=== PATIENT | female | born 1980 | race Caucasian/White ===

== ENCOUNTER 2019-09-06 01:01 | Emergency (ER) | payer SELFPAY ==
[~2019-09-06] VITALS: Ht 149 cm; Wt 57.0 kg
[2019-09-06 01:30] LABS: BASOPHILS % (AUTO) 0 % (0-10); EOSINOPHILS % (AUTO) 0 % (0-10); HEMATOCRIT 36 % (35-52); HEMOGLOBIN 12.1 G/DL (11.5-16.0); LYMPHOCYTES % (AUTO) 13 % (12-44); MEAN CORPUSCULAR HEMOGLOBIN 28 PG (25-34); MEAN CORPUSCULAR HGB CONC 33 G/DL (32-36); MEAN CORPUSCULAR VOLUME 85 FL (80-99); MEAN PLATELET VOLUME 11.8 FL (7.4-10.4); MONOCYTES # (AUTO) 0.3 X 10^3 (0.0-1.0); MONOCYTES % (AUTO) 4 % (0-12); NEUTROPHILS # (AUTO) 6.6 X 10^3 (1.8-7.8); NEUTROPHILS % (AUTO) 83 % (42-75); PLATELET COUNT 252 10^3/uL (130-400); RED CELL DISTRIBUTION WIDTH 12.9 % (10.0-14.5)
[2019-09-06 01:38] LABS: BILIRUBIN,URINE NEGATIVE (NEGATIVE); CLARITY,URINE CLEAR; COLOR,URINE YELLOW; GLUCOSE, URINE (UA) 1+ (NEGATIVE); KETONES,URINE 2+ (NEGATIVE); LEUKOCYTE ESTERASE ,URINE NEGATIVE (NEGATIVE); NITRITE,URINE NEGATIVE (NEGATIVE); PH,URINE 9 (5-9); PROTEIN,URINE 1+ (NEGATIVE); UROBILINOGEN,URINE NORMAL (NORMAL)
[2019-09-06 01:46] LABS: BACTERIA,URINE FEW /HPF; SQUAMOUS EPITHELIAL CELL,UR RARE /HPF; WBC,URINE RARE /HPF
[2019-09-06 01:48] LABS: AMPHETAMINE SCREEN, URINE NEGATIVE (NEGATIVE); BARBITURATE SCREEN URINE NEGATIVE (NEGATIVE); BENZODIAZEPINES SCREEN URINE NEGATIVE (NEGATIVE); CANNABINOID SCREEN, URINE NEGATIVE (NEGATIVE); COCAINE SCREEN URINE NEGATIVE (NEGATIVE); METHADONE STAT NEGATIVE (NEGATIVE); METHAMPHETAMINE SCREEN URINE S NEGATIVE (NEGATIVE); OPIATE SCREEN URINE NEGATIVE (NEGATIVE); OXYCODONE STAT NEGATIVE (NEGATIVE); PROPOXYPHENE STAT NEGATIVE (NEGATIVE); TRICYCLIC ANTIDEPRESSANTS SCRE NEGATIVE (NEGATIVE)
[2019-09-06 01:49] LABS: ALANINE AMINOTRANSFERASE 26 U/L (0-55); ALBUMIN 4.7 GM/DL (3.2-4.5); ALKALINE PHOSPHATASE 86 U/L (40-136); AMYLASE 73 U/L (25-125); BILIRUBIN,TOTAL 0.5 MG/DL (0.1-1.0); BUN/CREATININE RATIO 10; CALCIUM 9.3 MG/DL (8.5-10.1); CARBON DIOXIDE 17 MMOL/L (21-32); CHLORIDE 105 MMOL/L (98-107); CREATININE SERUM 0.69 MG/DL (0.60-1.30); GFR ESTIMATED > 60; GLUCOSE 137 MG/DL (70-105); LIPASE 24 U/L (8-78); MAGNESIUM 1.9 MG/DL (1.6-2.4); POTASSIUM 3.4 MMOL/L (3.6-5.0); SODIUM 141 MMOL/L (135-145); TOTAL PROTEIN 7.8 GM/DL (6.4-8.2)
[2019-09-06 01:56] LABS: ACETAMINOPHEN < 10 UG/ML (10-30)
[2019-09-06] MEDS ORDERED: HOLD METFORMIN - RECEIVED CONTRAST 20 ML VIAL IV SCH (02:15)
[2019-09-06] MEDS ORDERED: IOHEXOL 350 MG/ML 100 ML (OMNIPAQUE 350) VIAL IV ONE (02:15)
[2019-09-06] MEDS ORDERED: NS 100 ML (IVPB) BAG IV ONE (02:15)
[2019-09-06] MEDS ORDERED: HYOS0.1283 SL (03:47)
[2019-09-06] MEDS ORDERED: ONDA4TAB11 PO (03:47)
--- NOTE | 2019-09-06 03:48 | ED GI ---
General Chief Complaint: Abdominal/GI Problems Stated Complaint: ABD PAIN Allergies and Home Medications Allergies Coded Allergies: No Known Drug Allergies (Unverified , 09/06/19) Past Mqellsc-Ylshbl-Nllqdm Hx Patient Social History Recent Foreign Travel: No Contact w/Someone Who Travel: No Physical Exam Vital Signs Capillary Refill : Height/Weight/BMI Height: '" Weight: lbs. oz. kg; BMI Method: Progress/Results/Core Measures Results/Orders Lab Results Laboratory Tests Test 09/06/19 01:22 09/06/19 01:32 Range/Units White Blood Count 8.0 4.3-11.0 10^3/uL Red Blood Count 4.26 L 4.35-5.85 10^6/uL Hemoglobin 12.1 11.5-16.0 G/DL Hematocrit 36 35-52 % Mean Corpuscular Volume 85 80-99 FL Mean Corpuscular Hemoglobin 28 25-34 PG Mean Corpuscular Hemoglobin Concent 33 32-36 G/DL Red Cell Distribution Width 12.9 10.0-14.5 % Platelet Count 252 130-400 10^3/uL Mean Platelet Volume 11.8 H 7.4-10.4 FL Neutrophils (%) (Auto) 83 H 42-75 % Lymphocytes (%) (Auto) 13 12-44 % Monocytes (%) (Auto) 4 0-12 % Eosinophils (%) (Auto) 0 0-10 % Basophils (%) (Auto) 0 0-10 % Neutrophils # (Auto) 6.6 1.8-7.8 X 10^3 Lymphocytes # (Auto) 1.0 1.0-4.0 X 10^3 Monocytes # (Auto) 0.3 0.0-1.0 X 10^3 Eosinophils # (Auto) 0.0 0.0-0.3 10^3/uL Basophils # (Auto) 0.0 0.0-0.1 10^3/uL Sodium Level 141 135-145 MMOL/L Potassium Level 3.4 L 3.6-5.0 MMOL/L Chloride Level 105 98-107 MMOL/L Carbon Dioxide Level 17 L 21-32 MMOL/L Anion Gap 19 H 5-14 MMOL/L Blood Urea Nitrogen 7 7-18 MG/DL Creatinine 0.69 0.60-1.30 MG/DL Estimat Glomerular Filtration Rate > 60 BUN/Creatinine Ratio 10 Glucose Level 137 H 70-105 MG/DL Calcium Level 9.3 8.5-10.1 MG/DL Corrected Calcium 8.5-10.1 MG/DL Magnesium Level 1.9 1.6-2.4 MG/DL Total Bilirubin 0.5 0.1-1.0 MG/DL Aspartate Amino Transf (AST/SGOT) 21 5-34 U/L Alanine Aminotransferase (ALT/SGPT) 26 0-55 U/L Alkaline Phosphatase 86 40-136 U/L Total Protein 7.8 6.4-8.2 GM/DL Albumin 4.7 H 3.2-4.5 GM/DL Amylase Level 73 25-125 U/L Lipase 24 8-78 U/L Serum Test, Qualitative NEGATIVE NEGATIVE Acetaminophen Level < 10 L 10-30 UG/ML Serum Alcohol 49 H <10 MG/DL Urine Color YELLOW Urine Clarity CLEAR Urine pH 9 5-9 Urine Specific [place] 1.015 L 1.016-1.022 Urine Protein 1+ H NEGATIVE Urine Glucose (UA) 1+ H NEGATIVE Urine Ketones 2+ H NEGATIVE Urine Nitrite NEGATIVE NEGATIVE Urine Bilirubin NEGATIVE NEGATIVE Urine Urobilinogen NORMAL NORMAL MG/DL Urine Leukocyte Esterase NEGATIVE NEGATIVE Urine RBC (Auto) NEGATIVE NEGATIVE Urine RBC 2-5 H /HPF Urine WBC RARE /HPF Urine Squamous Epithelial Cells RARE /HPF Urine Crystals NONE /LPF Urine Bacteria FEW H /HPF Urine Casts NONE /LPF Urine Mucus NEGATIVE /LPF Urine Culture Indicated NO Urine Opiates Screen NEGATIVE NEGATIVE Urine Oxycodone Screen NEGATIVE NEGATIVE Urine Methadone Screen NEGATIVE NEGATIVE Urine Propoxyphene Screen NEGATIVE NEGATIVE Urine Barbiturates Screen NEGATIVE NEGATIVE Ur Tricyclic Antidepressants Screen NEGATIVE NEGATIVE Urine Phencyclidine Screen NEGATIVE NEGATIVE Urine Amphetamines Screen NEGATIVE NEGATIVE Urine Methamphetamines Screen NEGATIVE NEGATIVE Urine Benzodiazepines Screen NEGATIVE NEGATIVE Urine Cocaine Screen NEGATIVE NEGATIVE Urine Cannabinoids Screen NEGATIVE NEGATIVE My Orders Orders - DEANN HAYDEN DO Ed Iv/Invasive Line Start (09/06/19 01:10) Monitor-Rhythm Ecg Trace Only (09/06/19 01:10) Straight Cath For Spec.-Adult (09/06/19 01:10) Acetaminophen (09/06/19 01:10) Alcohol (09/06/19 01:10) Amylase (09/06/19 01:10) Cbc With Automated Diff (09/06/19 01:10) Comprehensive Metabolic Panel (09/06/19 01:10) Drug Screen Stat (Urine) (09/06/19 01:10) Hcg,Qualitative Serum (09/06/19 01:10) Lipase (09/06/19 01:10) Magnesium (09/06/19 01:10) Ua Culture If Indicated (09/06/19 01:10) Ed Iv/Invasive Line Start (09/06/19 01:10) Acute Abd Series (09/06/19 01:10) Ct Abd/Pelv W (Appendicitis) (09/06/19 01:10) Iohexol Injection (Omnipaque 350 Mg/Ml 1 (09/06/19 02:15) Received Contrast (Hold Metformin- Contr (09/06/19 02:15) Ns (Ivpb) (Sodium Chloride 0.9% Ivpb Bag (09/06/19 02:15) Medications Given in ED Current Medications Medications Dose Ordered Sig/Carroll Route Start Time Stop Time Status Last Admin Dose Admin Iohexol 100 ml ONCE ONCE IV 09/06/19 02:15 09/06/19 02:16 DC 09/06/19 02:13 100 ML Sodium Chloride 100 ml ONCE ONCE IV 09/06/19 02:15 09/06/19 02:16 DC 09/06/19 02:14 80 ML Departure Impression Primary Impression: Gastroenteritis Disposition: 01 HOME, SELF-CARE Condition: Improved Departure-Patient Inst. Referrals: [facility] Patient Instructions: [id number] Add. Discharge Instructions: CLEAR LIQUIDS--WATER, BROTH, JELLO, GATORADE BRATS DIET--BANANAS, RICE, APPLESAUCE, TOAST, SALTINES FOLLOW UP WITH YOUR DR TOMORROW IF NO BETTER All discharge instructions reviewed with patient and/or family. Voiced understanding. Scripts Ondansetron (Ondansetron Odt) 4 Mg Tab.rapdis 4 MG PO Q4H for Nausea/Vomiting, #10 TAB Prov: DEANN HAYDEN DO 09/06/19 Hyoscyamine Sulfate (Levsin-Sl) 0.125 Mg Tab.subl 1-2 TAB SL Q4H for Abdominal Pain, #10 TAB Prov: DEANN HAYDEN DO 09/06/19 DEANN HAYDEN DO Sep 06, 2019 03:48
[2019-09-06 04:10] VITALS: BP 123/87
--- NOTE | 2019-09-06 06:58 | Diagnostic Imaging Report ---
INDICATION: Abdominal pain and possible appendicitis. FINDINGS: Upright view of the chest demonstrates lungs to be clear. Heart, mediastinum and pulmonary vascularity are normal. Supine and upright views of the abdomen demonstrates contrast within the collecting system from previous CT scan. Bowel gas pattern appears normal. There is normal appearance of the osseous structures. IMPRESSION: There are no acute findings. Dictated by: Dictated on workstation # [id number]
--- NOTE | 2019-09-06 07:02 | Diagnostic Imaging Report ---
PROCEDURE: CT abdomen and pelvis with contrast, rule out appendicitis. TECHNIQUE: Multiple contiguous axial images were obtained through the abdomen and pelvis after the administration of intravenous contrast. INDICATION: Abdominal pain, gastrointestinal problems FINDINGS: Visualized portions of the lung bases are clear. The liver, gallbladder, spleen, pancreas, adrenal glands and kidneys are normal. There is normal appearance of the appendix. The uterus and adnexal structures and urinary bladder are normal. Small ovarian cysts are present which are usually normal. There is no ascites, free air or abnormal adenopathy. Bowel loops appear normal. IMPRESSION: Normal CT scan of the abdomen and pelvis. Findings agree with [facility] report. Dictated by: Dictated on workstation # [id number]
== END 2019-09-06 04:16 | disposition home or self-care (01) ==
LOC: ER 01:06
DX: K52.9 Noninfective gastroenteritis and colitis, unspecified (principal)
CPT/HCPCS: 36415; 51701; 74022; 74177; 80053; 80306; 80320; 80329; 81000; 82150; 83690; 83735; 84703; 85025; 93005; 93041

== ENCOUNTER 2021-09-29 17:30 | Emergency (ER) | payer SELFPAY ==
[~2021-09-29] VITALS: Ht 152.4 cm; Wt 60.0 kg
[~2021-09-29 17:30] MED LIST: HYOS0.1283 SL; ONDA4TAB11 PO
[2021-09-29 17:40] VITALS: BP 139/80
--- NOTE | 2021-09-29 18:08 | ED GU-Female ---
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 PT STATES SHE IS AND HAS BEEN SPOTTING FOR 12 DAYS STATES SHE HAD A SMALL AMOUNT OF DISCHARGE SOMETIME IN AUGUST, OTHERWISE HAS NO IDEA WHEN HER LMP WAS WENT TO [facility] ON 09/20/21 TO HAVE A TEST--HAD A POSITIVE HOME TEST 3-4 DAYS PRIOR TO THAT VISIT STATES SHE HAD LAB DONE, BUT DOES NOT KNOW ANY RESULTS PT HAS NOT ATTEMPTED TO FOLLOW UP WITH THEM AT ANY TIME, AND DOES NOT HAVE A FOLLOW UP APPOINTMENT SCHEDULED PT IS NOT HAVING ANY PAIN PT HAS BEEN HAVING A PINK DISCHARGE FOR THE LAST 12 DAYS HAS NOT USED ANY PADS AT ALL --MOSTLY PINK DISCHARGE ON TISSUE WITH WIPING SYMPTOMS ARE NO DIFFERENT TODAY IN ANY WAY PT IS AB 0--LAST WAS DELIVERED AT 6 MONTHS /3 WEEKS--DEL[place]ED IN [place]--CHILD IS 9 YEARS OLD NOW. PCP: [facility] Allergies and Home Medications Allergies Coded Allergies: No Known Drug Allergies (Unverified , 09/06/19) Patient Home Medication List Home Medication List Reviewed: Yes Hyoscyamine Sulfate (Levsin-Sl) 0.125 Mg Tab.subl, 1-2 TAB SL Q4H Prescribed by: DEANN HAYDEN on 09/06/19 0347 Ondansetron (Ondansetron Odt) 4 Mg Tab.rapdis, 4 MG PO Q4H Prescribed by: DEANN HAYDEN on 09/06/19 0347 Review of Systems Review of Systems Constitutional: no symptoms reported Respiratory: no symptoms reported Cardiovascular: no symptoms reported Gastrointestinal: no symptoms reported Genitourinary: see HPI : Yes Musculoskeletal: no symptoms reported Skin: no symptoms reported Psychiatric/Neurological: No Symptoms Reported Past Tpbhldk-Tdtncz-Zizezc Hx Patient Social History Tobacco Use?: No Substance use?: No Alcohol Use?: No Immunizations Up To Date Tetanus Booster (TDap): Unknown PED Vaccines UTD: Yes Seasonal Allergies Seasonal Allergies: No Past Medical History Surgeries: Yes ( X 3) Section Respiratory: No Cardiac: No Neurological: No : Yes Reproductive Disorders: No Genitourinary: No Gastrointestinal: No Musculoskeletal: No Endocrine: No HEENT: No Cancer: No Psychosocial: No Integumentary: No Blood Disorders: No Physical Exam Vital Signs Vital Signs - First Documented 09/29/21 17:40 Temp 36.6 Pulse 87 Resp 20 B/P (MAP) 139/80 (99) Pulse Ox 99 O2 Delivery Room Air Capillary Refill : Height, Weight, BMI Height: '" Weight: lbs. oz. kg; 25.00 BMI Method: General Appearance: WD/WN, no apparent distress Cardiovascular: regular rate, rhythm, no murmur Respiratory: normal breath sounds Gastrointestinal: non tender, soft Pelvic: normal external exam, normal adnexa, no cerv. motion tender, no masses; No tender adnexa; tender uterus (MILD FUNDAL TENDERNESS. UTERUS CONSISTENT WITH 5-6 WEEKS IN SIZE), other (SMALL AMOUNT OF CLOTTED BLOOD AT CERVIX. CERVIX IS CLOSED. ) Back: no CVA tenderness Extremities: normal inspection Neurologic/Psychiatric: butcher all round II-XII nml as tested, no motor/sensory deficits, alert, normal mood/affect, oriented x 3 Skin: normal color, warm/dry Progress/Results/Core Measures Suspected Sepsis SIRS Temperature: Pulse: Respiratory Rate: Laboratory Tests 09/29/21 18:18: White Blood Count 7.8 Blood Pressure / Mean: Laboratory Tests 09/29/21 18:18: Platelet Count 292 Results/Orders Lab Results Laboratory Tests Test 09/29/21 18:18 09/29/21 18:40 Range/Units White Blood Count 7.8 4.3-11.0 10^3/uL Red Blood Count 3.99 3.80-5.11 10^6/uL Hemoglobin 10.6 L 11.5-16.0 g/dL Hematocrit 33 L 35-52 % Mean Corpuscular Volume 83 80-99 fL Mean Corpuscular Hemoglobin 27 25-34 pg Mean Corpuscular Hemoglobin Concent 32 32-36 g/dL Red Cell Distribution Width 16.0 H 10.0-14.5 % Platelet Count 292 130-400 10^3/uL Mean Platelet Volume 11.5 9.0-12.2 fL Human Chorionic Gonadotropin, Quant 415 H <5 MIU/ML Urine Color YELLOW Urine Clarity CLEAR Urine pH 6.0 5-9 Urine Specific [place] 1.015 L 1.016-1.022 Urine Protein NEGATIVE NEGATIVE Urine Glucose (UA) NEGATIVE NEGATIVE Urine Ketones NEGATIVE NEGATIVE Urine Nitrite NEGATIVE NEGATIVE Urine Bilirubin NEGATIVE NEGATIVE Urine Urobilinogen 0.2 < = 1.0 MG/DL Urine Leukocyte Esterase NEGATIVE NEGATIVE Urine RBC (Auto) NEGATIVE NEGATIVE Urine RBC NONE /HPF Urine WBC 0-2 /HPF Urine Squamous Epithelial Cells 2-5 /HPF Urine Crystals NONE /LPF Urine Bacteria NEGATIVE /HPF Urine Casts NONE /LPF Urine Mucus NEGATIVE /LPF Urine Culture Indicated NO My Orders Orders - DEANN HAYDEN DO Cbc No Diff (09/29/21 17:56) Hcg,Quantitative (09/29/21 17:56) Abo Rh Type (09/29/21 17:56) Straight Cath For Spec.-Adult (09/29/21 18:02) Ua Culture If Indicated (09/29/21 18:02) Vital Signs/I&O 09/29/21 17:40 Temp 36.6 Pulse 87 Resp 20 B/P (MAP) 139/80 (99) Pulse Ox 99 O2 Delivery Room Air Capillary Refill : Progress Note : Progress Note NO ACTIVE BLEEDING DURING ER STAY DID NOT USE ANY PADS NO PAIN DURING ER STAY BLOOD TYPE IS O + Departure Impression Primary Impression: Threatened in early Disposition: 01 HOME, SELF-CARE Condition: Stable Departure-Patient Inst. Decision time for Depature: 19:03 Referrals: [facility] (PCP/Family) Primary Care Physician Patient Instructions: Bleeding in Early ED Add. Discharge Instructions: NOTHING IN VAGINA--NO TAMPONS, DOUCHING OR INTERCOURSE TYLENOL NEEDED FOR PAIN TAKE OVER THE COUNTER VITAMINS EVERY DAY FOLLOW UP WITH [facility] IN 2-3 DAYS FOR FURTHER CARE--CALL IN THE MORNING TO SCHEDULE APPOINTMENT DEANN HAYDEN DO Sep 29, 2021 18:08
[2021-09-29 18:29] LABS: HEMATOCRIT 33 % (35-52); HEMOGLOBIN 10.6 g/dL (11.5-16.0); MEAN CORPUSCULAR HEMOGLOBIN 27 pg (25-34); MEAN CORPUSCULAR HGB CONC 32 g/dL (32-36); MEAN CORPUSCULAR VOLUME 83 fL (80-99); MEAN PLATELET VOLUME 11.5 fL (9.0-12.2); PLATELET COUNT 292 10^3/uL (130-400); WHITE BLOOD COUNT 7.8 10^3/uL (4.3-11.0)
[2021-09-29 18:48] LABS: BILIRUBIN,URINE NEGATIVE (NEGATIVE); CLARITY,URINE CLEAR; COLOR,URINE YELLOW; GLUCOSE, URINE (UA) NEGATIVE (NEGATIVE); KETONES,URINE NEGATIVE (NEGATIVE); LEUKOCYTE ESTERASE ,URINE NEGATIVE (NEGATIVE); NITRITE,URINE NEGATIVE (NEGATIVE); PROTEIN,URINE NEGATIVE (NEGATIVE)
[2021-09-29 18:55] LABS: BACTERIA,URINE NEGATIVE /HPF; WBC,URINE 0-2 /HPF
== END 2021-09-29 19:15 | disposition home or self-care (01) ==
LOC: EDUNIT# 17:30 → ER 17:32
DX: O20.0 Threatened abortion (principal)
CPT/HCPCS: 36415; 51701; 81000; 84702; 85027; 86900; 86901